=== PATIENT | male | born 1935 | race Caucasian/White ===

== ENCOUNTER 2017-03-27 08:49 | Day surgery (SDC) | payer MEDICARE, OTHER ==
[~2017-03-27] VITALS: Ht 165.1 cm; Wt 76.2 kg
[~2017-03-27 08:49] MED LIST: AMLO10TA2 PO; ASPI1TAB PO; METF500T13 PO; MODU5TA PO; POTA10TA16 PO; ROSU20TA PO
[2017-03-27] MEDS ORDERED: BUPIVACAINE/EPIN 0.25% 30 ML VIAL As Ordered ONE (09:01)
[2017-03-27] MEDS ORDERED: LR 1,000 ML IV SCH ×3 (09:15→11:15)
[2017-03-27] MEDS ORDERED: ceFAZolin 1GM INJ (J0690) As Ordered ONE (09:17)
[2017-03-27] MEDS ORDERED: ceFAZolin SOD 1 GM in D5W MINI-BAG PLUS 50 ML IV ONE (09:30)
[2017-03-27] MEDS ORDERED: LIDOCAINE 2% INJ 100 MG/5 ML SDV (FOR ANES.) As Ordered ONE (09:49)
[2017-03-27] MEDS ORDERED: ETOMIDATE INJ 20MG/10ML VIAL As Ordered ONE (09:49)
[2017-03-27] MEDS ORDERED: fentaNYL 100 MCG/2 ML INJECTION (J3010) As Ordered ONE (09:49)
[2017-03-27] MEDS ORDERED: PROPOFOL 200 MG/20 ML VIAL As Ordered ONE (09:49)
[2017-03-27] MEDS ORDERED: ROCURONIUM BROMIDE 50 MG/5 ML VIAL/SYRINGE As Ordered ONE (09:49)
[2017-03-27] MEDS ORDERED: ONDANSETRON 4MG/2ML VIAL (J2405) As Ordered ONE (10:04)
[2017-03-27] MEDS ORDERED: GLYCOPYRROLATE INJ 0.2 MG/ML 2 ML VIAL As Ordered ONE (10:05)
[2017-03-27] MEDS ORDERED: NEOSTIGMINE 1MG/ML 5 ML SYRINGE (J2710) As Ordered ONE (10:05)
[2017-03-27] MEDS ORDERED: KETOROLAC 60 MG/2 ML VIAL (J1885) As Ordered ONE (10:05)
[2017-03-27] MEDS ORDERED: ONDANSETRON 4MG/2ML VIAL (J2405) IV PRN ×2 (11:15)
[2017-03-27] MEDS ORDERED: NORCO, ANEXSIA 5/325MG TABLET (HYDROcodone/ACETAMINOPHEN) PO PRN (11:15)
[2017-03-27] MEDS ORDERED: PERCOCET 5MG/325MG TAB PO PRN (11:15)
[2017-03-27] MEDS ORDERED: MORPHINE 2 MG/ML 1ML SYRINGE IV PRN (11:15)
[2017-03-27] MEDS ORDERED: fentaNYL 100 MCG/2 ML INJECTION (J3010) IV PRN (11:15)
[2017-03-27 13:00] VITALS: BP 132/78
--- NOTE | 2017-03-27 13:01 | ECGEPIP ---
Stationary ECG Study [facility] Test Date: 2017-03-27 Pat Name: JOANNE CHAPMAN Department: Room: - Gender: M Phlebotomist Associate: : [id number] Requested By: Ford London Order Number: [id number] Reading MD: Giovanni Martin Measurements Intervals [place] Rate: 71 P: 20 VA: 136 QRS: -12 QRSD: 110 T: -28 QT: 396 QTc: 432 Interpretive Statements Normal sinus rhythm with isolated PVC. Nonspecific ST/T-wave abnormalities. No prior tracing for comparison. Clinical correlation advised Electronically Signed On 03-27-2017 13:01:51 EDT by Giovanni Martin
--- NOTE | 2017-04-28 06:24 | RO ---
DATE OF PROCEDURE: 03/27/2017 PREOPERATIVE DIAGNOSIS: Left inguinal hernia. POSTOPERATIVE DIAGNOSIS: Left inguinal hernia. PROCEDURE: Open left inguinal hernia repair with UltraPro mesh. SURGEON: Ford Frederick MD COMMISSIONING MANAGER: ANESTHESIA: General endotracheal anesthesia. ESTIMATED BLOOD LOSS: Minimal. FLUIDS: Crystalloid. DESCRIPTION OF PROCEDURE: The patient was brought to the operating room and was given general anesthesia. After adequate anesthesia was established, the patient was prepped and draped in the usual sterile fashion. Next, a left inguinal incision was made with skin knife. Blunt dissection was carried down to fascia. Fascia/external obliques were opened along its muscle fibers down through the external ring after taking care of making sure that the ilioinguinal nerve was not on the backside of this fascia. Once clamps were placed on the external oblique both superior and inferiorly, a self-retaining retractor was placed in the wound and the cord structures were dissected off the inguinal ligament and the pubis using some blunt dissection, some minimal electrocautery, and eventually after the cord structures and its contents were mobilized, a Virgil drain was placed around this. Next, the hernia sac was seen, was dissected off surrounding tissue and specifically off the cord structures itself and it was mobilized all the way up to the internal ring. Once this was mobilized adequately, there was also a lipoma of the cord that was dissected off of surrounding fatty tissue. It was transected at its base with electrocautery. Good hemostasis was achieved with this electrocautery. The hernia sac was much more of a direct inguinal hernia than a indirect. Even though it came off close to the internal ring, it was much more of a direct/defect in the floor of the canal and thus it was able to be imbricated using some #0 Vicryl, and once this made a nice floor to the canal, UltraPro was cut to the appropriate size and it was tacked in on the medial aspect with SecureStrap laterally with PDS with an interrupted manner along the inguinal ligament and on the tails with PDS as well. The right side/medial aspect was tacked in with the SecureStrap along the internal oblique area. Care was taken to make sure that the opening for the cord structures was adequate and only allowing a tip of the finger in addition to the cord structures itself through the through the mesh. Once this was in place, the external oblique was closed over the top of this with #0 Vicryl. #3-0 Vicryl was used to close Mimi's layer and the dermis and #4-0 Vicryl was used to approximate the skin. Steri-Strips and a dry sterile dressing was applied. The patient was awakened from his anesthesia, brought to the recovery room awake, alert and hemodynamically stable. Sponge and needle counts correct times two.
== END 2017-03-27 13:20 | disposition home or self-care (01) ==
LOC: M SDC 08:49
PROVIDERS: ATTEND Surgery
DX: K40.90 Unilateral inguinal hernia, without obstruction or gangrene, not specified as recurrent (principal); I10 Essential (primary) hypertension; E78.00 Pure hypercholesterolemia, unspecified; I25.2 Old myocardial infarction; E11.9 Type 2 diabetes mellitus without complications; I25.10 Atherosclerotic heart disease of native coronary artery without angina pectoris; M19.90 Unspecified osteoarthritis, unspecified site; K57.92 Diverticulitis of intestine, part unspecified, without perforation or abscess without bleeding; Z85.46 Personal history of malignant neoplasm of prostate; Z79.899 Other long term (current) drug therapy; Z79.82 Long term (current) use of aspirin; Z79.84 Long term (current) use of oral hypoglycemic drugs; Z95.1 Presence of aortocoronary bypass graft
CPT/HCPCS: 49505; 93005; C1781; J0690; J1885; J2405; J2710; J3010

== ENCOUNTER 2018-05-27 10:53 | Day surgery (SDC) | payer MEDICARE, OTHER ==
[2018-05-27] MEDS: NS 1,000 ML IV (07:00)
[2018-05-27] MEDS ORDERED: PROPOFOL 200 MG/20 ML VIAL As Ordered (12:12)
[2018-05-27] MEDS ORDERED: LIDOCAINE 2% INJ 100 MG/5 ML SDV (FOR ANES.) As Ordered (12:12)
== END 2018-05-27 13:31 | disposition home or self-care (01) ==
LOC: M OPP 10:53
DX: R19.5 Other fecal abnormalities (principal); D12.3 Benign neoplasm of transverse colon; K62.1 Rectal polyp; K57.30 Diverticulosis of large intestine without perforation or abscess without bleeding; K64.2 Third degree hemorrhoids; K64.1 Second degree hemorrhoids; I10 Essential (primary) hypertension; E78.5 Hyperlipidemia, unspecified; E11.9 Type 2 diabetes mellitus without complications; Z85.46 Personal history of malignant neoplasm of prostate; Z79.82 Long term (current) use of aspirin; Z79.899 Other long term (current) drug therapy; Z79.84 Long term (current) use of oral hypoglycemic drugs
CPT/HCPCS: 45385

== ENCOUNTER → 2021-02-08 | Outpatient (REF) | payer MEDICARE, OTHER ==
[~2021-02-08] MED LIST changes: -AMLO10TA2 PO; +AMLO1TAB25 PO; -ASPI1TAB PO; +ASPI81TA26 PO; -ROSU20TA PO; +ROSU20TA5 PO
== END ==
LOC: M LAB REF 16:24
PROVIDERS: ATTEND Nurse Practitioner Adult Health
DX: M10.9 Gout, unspecified (principal)

== ENCOUNTER → 2022-01-02 | Outpatient (REF) | payer MEDICARE, OTHER ==
[~2022-01-02] MED LIST changes: +POTA-149 PO; -POTA10TA16 PO
== END ==
LOC: M LAB REF 12:17
PROVIDERS: ATTEND Nurse Practitioner Adult Health
DX: M10.9 Gout, unspecified (principal)

== ENCOUNTER → 2022-02-05 | Outpatient (CLI) | payer MEDICARE, OTHER | LOC: M WUC 08:25 | PROVIDERS: ATTEND Nurse Practitioner Adult Health | DX: M51.36 Other intervertebral disc degeneration, lumbar region (principal); M51.37 Other intervertebral disc degeneration, lumbosacral region; M25.78 Osteophyte, vertebrae ==

== ENCOUNTER → 2022-03-04 | Outpatient (CLI) | payer MEDICARE, OTHER | LOC: M PLAIMG 09:35 | PROVIDERS: ATTEND Nurse Practitioner Adult Health | DX: M54.50 Low back pain, unspecified (principal) ==

== ENCOUNTER → 2022-04-16 | Outpatient (CLI) | payer MEDICARE, OTHER | LOC: M WHC 13:00 | PROVIDERS: ATTEND Orthopaedic Surgery | DX: Z13.820 Encounter for screening for osteoporosis (principal); M85.89 Other specified disorders of bone density and structure, multiple sites; M41.9 Scoliosis, unspecified ==

== ENCOUNTER 2023-04-02 07:44 | Day surgery (SDC) | payer MEDICARE, OTHER ==
[~2023-04-02] VITALS: Ht 165.1 cm; Wt 75.1 kg
[~2023-04-02 07:44] MED LIST changes: +CALC500C16 PO; +FERR325T3 PO; +GABA-284 PO; +NS 1,000 ML IV ONE; +OMEP-173 PO; -ROSU20TA5 PO; +ROSU20TA61 PO; +TYLE650T38 PO; +VALS1TAB66 PO
[2023-04-02 09:19] VITALS: TEMP 97.4
[2023-04-02 09:36] VITALS: BP 142/67; O2SAT 95
== END 2023-04-02 09:36 | disposition home or self-care (01) ==
LOC: M OPP 07:44
PROVIDERS: ATTEND Surgery
DX: D50.9 Iron deficiency anemia, unspecified (principal); K64.2 Third degree hemorrhoids; K57.30 Diverticulosis of large intestine without perforation or abscess without bleeding; Z86.010 Personal history of colon polyps; K44.9 Diaphragmatic hernia without obstruction or gangrene; K31.89 Other diseases of stomach and duodenum; Z53.8 Procedure and treatment not carried out for other reasons; Z87.891 Personal history of nicotine dependence; Z79.02 Long term (current) use of antithrombotics/antiplatelets; Z79.82 Long term (current) use of aspirin; Z79.899 Other long term (current) drug therapy; Z88.8 Allergy status to other drugs, medicaments and biological substances

== ENCOUNTER → 2023-04-29 | Outpatient (REF) | payer MEDICARE, OTHER ==
[~2023-04-29] MED LIST changes: -NS 1,000 ML IV ONE
[2023-04-29 15:19] LABS: PERCENT SATURATION 14.3 % (19.7-50.0)
[2023-04-29 15:23] LABS: FERRITIN 20.5 NG/ML (10.5-307.3)
== END ==
LOC: M LAB REF 12:47
PROVIDERS: ATTEND Internal Medicine
DX: D50.9 Iron deficiency anemia, unspecified (principal)

== ENCOUNTER → 2023-06-03 | Outpatient (CLI) | payer MEDICARE, OTHER ==
[~2023-06-03] MED LIST changes: +E-Z-GAS II EFFERVESCENT PACKET (SODIUM BICARB./CITRIC ACID/SIMETHICONE) As Ordered ONE; +E-Z-HD 98% w/w 340GM SUSP BTL As Ordered ONE; +E-Z-PAQUE 96% w/w SUSP 176GM BTL As Ordered ONE
== END ==
LOC: M RAD 09:21
PROVIDERS: ATTEND Physician Assistant
DX: K44.9 Diaphragmatic hernia without obstruction or gangrene (principal)

== ENCOUNTER → 2024-01-04 | Outpatient (REF) | payer MEDICARE, OTHER ==
[~2024-01-04] MED LIST changes: -E-Z-GAS II EFFERVESCENT PACKET (SODIUM BICARB./CITRIC ACID/SIMETHICONE) As Ordered ONE; -E-Z-HD 98% w/w 340GM SUSP BTL As Ordered ONE; -E-Z-PAQUE 96% w/w SUSP 176GM BTL As Ordered ONE
[2024-01-04 14:01] LABS: PERCENT SATURATION 37.9 % (19.7-50.0)
== END ==
LOC: M LAB REF 11:52
PROVIDERS: ATTEND Internal Medicine
DX: D50.9 Iron deficiency anemia, unspecified (principal)

== ENCOUNTER → 2024-02-10 | Outpatient (CLI) | payer MEDICARE, OTHER | LOC: M CARPUL 13:01 | PROVIDERS: ATTEND Internal Medicine | DX: I35.0 Nonrheumatic aortic (valve) stenosis (principal) ==

== ENCOUNTER → 2024-06-20 | Outpatient (REF) | payer MEDICARE, OTHER ==
[~2024-06-20] MED LIST changes: -ROSU20TA61 PO; +ROSU20TA86 PO
[2024-06-20 14:41] LABS: PERCENT SATURATION 17.6 % (19.7-50.0)
[2024-06-20 14:45] LABS: FERRITIN 40.8 NG/ML (10.5-307.3)
== END ==
LOC: M LAB REF 13:01
PROVIDERS: ATTEND Internal Medicine
DX: D50.9 Iron deficiency anemia, unspecified (principal)